=== PATIENT | male | born 1985 | race Hispanic/Latino ===

== ENCOUNTER 2025-10-11 09:38 | Outpatient (CLI) | payer BC | END 2025-10-11 09:39 | disposition home or self-care (01) | LOC: CSHSLEEP 09:38 | PROVIDERS: ATTEND Family Medicine | DX: G47.33 Obstructive sleep apnea (adult) (pediatric) (principal); R53.83 Other fatigue; R51.9 Headache, unspecified; E66.9 Obesity, unspecified; Z68.36 Body mass index [BMI] 36.0-36.9, adult; R06.83 Snoring | CPT/HCPCS: 95800 ==